=== PATIENT | female | born 1960 | race Caucasian/White ===

== ENCOUNTER 2024-03-08 07:00 | Day surgery (SDC) | payer MEDICARE ==
[~2024-03-08] VITALS: Ht 157.5 cm; Wt 100.7 kg
[~2024-03-08 07:00] MED LIST: ACET-897 PO; AMLO1TAB25 PO; BUSP10TA PO; CALC1TAB30 PO; CYCL-707 PO; ECOT81TA5 PO; EZET10TA21 PO; FURO20TA2 PO; LOSA100T46 PO; METO50TA7 PO; MONT10TA97 PO; MULTTAB61 PO; REPA140I2; SEMA0.257; SYNT50TA PO; VITA100093 PO; VITA250T18 PO
[2024-03-08] MEDS ORDERED: LR 1,000 ML IV SCH ×3 (07:35→10:20)
[2024-03-08 07:37] LABS: HEMATOCRIT 39.8 % (36.0-47.0); HEMOGLOBIN 13.1 g/dl (12.0-15.5); MEAN CORPUSCULAR HEMOGLOBIN 30.8 pg (27.0-33.0); MEAN CORPUSCULAR HGB CONC 32.9 g/dl (32.0-36.5); MEAN CORPUSCULAR VOLUME 93.4 fl (80.0-96.0); PLATELET COUNT, AUTOMATED 287 10^3/uL (150-450); RED BLOOD COUNT 4.26 10^6/uL (4.00-5.40); WHITE BLOOD COUNT 10.4 10^3/uL (4.0-10.0)
[2024-03-08] MEDS ORDERED: propofoL 200 MG/20 ML VIAL As Ordered ONE (08:05)
[2024-03-08] MEDS ORDERED: ONDANSETRON 4MG 2ML VIAL As Ordered ONE (08:12)
[2024-03-08] MEDS ORDERED: LIDOCAINE 2% 100MG/5ML SDV (FOR ANES.) As Ordered ONE (08:18)
[2024-03-08] MEDS ORDERED: MIDAZOLAM INJ 2MG/2ML VIAL As Ordered ONE (08:30)
[2024-03-08] MEDS: SILVER NITRATE APPLICATOR (1 = QTY 10) As Ordered ONE (08:32)
[2024-03-08] MEDS: LIDOCAINE 1% MDV 20ML VIAL As Ordered ONE (08:32)
[2024-03-08] MEDS ORDERED: ACETAMINOPHEN 1000MG 100ML IV BAG As Ordered ONE (09:01)
[2024-03-08] MEDS ORDERED: fentaNYL 100 MCG/2 ML INJECTION As Ordered ONE (09:06)
[2024-03-08] MEDS ORDERED: PHENYLephrine 500MCG 5ML (100MCG/ML) SYRINGE As Ordered ONE (09:21)
[2024-03-08] MEDS ORDERED: ONDANSETRON 4MG 2ML VIAL IV PRN ×2 (10:00→10:20)
[2024-03-08] MEDS ORDERED: fentaNYL 100 MCG/2 ML INJECTION IV PRN (10:20)
[2024-03-08] MEDS ORDERED: MORPHINE 2 MG/ML 1ML VIAL IV PRN (10:20)
[2024-03-08] MEDS: oxyCODONE 5MG TAB PO PRN (10:28)
[2024-03-08] MEDS: KETOROLAC 30 MG/ML 1ML VIAL IV ONE (10:32)
[2024-03-08 11:30] VITALS: BP 146/72; TEMP 97; O2SAT 97
== END 2024-03-08 11:38 | disposition home or self-care (01) ==
LOC: M SDC 07:00
PROVIDERS: ATTEND Obstetrics & Gynecology
DX: N84.0 Polyp of corpus uteri (principal); N99.81 Other intraoperative complications of genitourinary system; T88.52XA Failed moderate sedation during procedure, initial encounter; Y70.0 Diagnostic and monitoring anesthesiology devices associated with adverse incidents; I25.10 Atherosclerotic heart disease of native coronary artery without angina pectoris; I25.2 Old myocardial infarction; G47.30 Sleep apnea, unspecified; F17.219 Nicotine dependence, cigarettes, with unspecified nicotine-induced disorders; Z88.8 Allergy status to other drugs, medicaments and biological substances; Z79.899 Other long term (current) drug therapy
CPT/HCPCS: 36415; 58558; 85027; 86850; 86900; 86901; 88305; J0131; J1100; J1885; J2250; J2371; J2405; J3010